=== PATIENT | female | born 1960 | race Caucasian/White ===

== ENCOUNTER 2017-03-03 09:02 | Emergency (ER) | payer OTHER ==
[~2017-03-03] VITALS: Ht 177.8 cm; Wt 126.8 kg
[~2017-03-03 09:02] MED LIST: ROBITUSSIN AC,T10 ML PO; TAMIFLU75 MG PO; TESSALON200 MG PO; ZITHROMAX Z-PA250 MG PO
[2017-03-03 09:03] VITALS: BP 168/85
[2017-03-03] MEDS ORDERED: FLONASE16 G1 BOTH NARES (10:01)
[2017-03-03] MEDS ORDERED: TESSALON200 MG PO (10:01)
[2017-03-03] MEDS ORDERED: ROBITUSSIN NIG118 ML PO (10:01)
[2017-03-03] MEDS ORDERED: NAPROSYN500 MG PO (10:01)
== END 2017-03-03 10:15 | disposition home or self-care (01) ==
LOC: EME 09:02
DX: J20.8 Acute bronchitis due to other specified organisms (principal); J30.2 Other seasonal allergic rhinitis; R51 Headache; J02.9 Acute pharyngitis, unspecified
CPT/HCPCS: 99281; 99284

== ENCOUNTER 2018-03-25 11:08 | Emergency (ER) | payer BC ==
[~2018-03-25] VITALS: Ht 177.8 cm; Wt 129.0 kg
[~2018-03-25 11:08] MED LIST changes: +FLONASE16 G1 BOTH NARES; +NAPROSYN500 MG PO; +ROBITUSSIN NIG118 ML PO
[2018-03-25 12:14] LABS: HEMATOCRIT 38.5 % (36.0-46.0); HEMOGLOBIN 12.8 G/DL (11.9-15.5); MCH 29.8 PG (29.0-34.0); MCHC 33.2 G/DL (30.0-36.0); MCV 89.5 FL (83-99); PLATELET COUNT 247 K/uL (156-360); RBC DIS.WIDTH-CV 13.2 % (11.8-14.6); RBC DIS.WIDTH-SD 43.5 % (39-53); WHITE BLOOD COUNT 4.6 K/uL (4.1-10.2)
[2018-03-25 12:29] LABS: APPEARANCE SL.HAZY ((CLEAR)); BILIRUBIN NEGATIVE; BLOOD LARGE; COLOR YELLOW ((YELLOW)); GLUCOSE (STRIP) NEGATIVE; KETONES NEGATIVE; LEUKOCYTES NEGATIVE; NITRITE NEGATIVE; PROTEIN (STRIP) NEGATIVE; SPECIFIC GRAVITY 1.018 (1.000-1.030); UROBILINOGEN 0.2 MG/DL (0.2-1.0)
[2018-03-25 12:32] LABS: CHLORIDE 108 mEq/L (99-109); POTASSIUM 4.6 mEq/L (3.7-5.4); SODIUM 142 mEq/L (136-147)
[2018-03-25 12:34] LABS: GLUCOSE 93 mg/dL (70-99)
[2018-03-25 12:34] LABS: BACTERIA NONE SEEN /HPF; EPITHELIAL CELLS 1+ /HPF; MUCUS TRACE /LPF; RED BLOOD CELLS TNTC /HPF (0-5); UCUL ADDED? YES; WHITE BLOOD CELLS 0-5 /HPF (0-5)
[2018-03-25 12:38] LABS: CREATININE 0.9 mg/dL (0.6-1.3); GFR ESTIMATE (CALCULATED) > 59 mL/min/
[2018-03-25 12:39] LABS: UREA NITROGEN (BUN) 21 mg/dL (9-23)
[2018-03-25] MEDS ORDERED: PERCOCET 5/31 TABLET PO (13:48)
[2018-03-25] MEDS ORDERED: MOTRIN800 MG PO (13:48)
[2018-03-25] MEDS ORDERED: FLOMAX0.4 MG PO (13:48)
[2018-03-25] MEDS ORDERED: ZOFRAN4 MG PO (13:48)
[2018-03-25 14:42] VITALS: BP 148/81
== END 2018-03-25 14:45 | disposition home or self-care (01) ==
LOC: EME 11:08 → RME 11:08
DX: N13.2 Hydronephrosis with renal and ureteral calculous obstruction (principal); R11.0 Nausea; K21.9 Gastro-esophageal reflux disease without esophagitis; F41.9 Anxiety disorder, unspecified
CPT/HCPCS: 74176; 80048; 81003; 85027; 87086; 99281; 99284; J1885